=== PATIENT | male | born 2005 | race Two or more races ===

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

== ENCOUNTER 2023-04-23 04:50 | Emergency (ER) | payer MEDICAID ==
[~2023-04-23] VITALS: Ht 177.8 cm; Wt 103.8 kg
[~2023-04-23 04:50] MED LIST: CEPH-510 PO; IBUP-1456 PO
[2023-04-23 05:03] VITALS: BP 114/84
== END 2023-04-23 07:25 | disposition left against medical advice (07) ==
LOC: ER 04:50
DX: R51.9 Headache, unspecified (principal); Z53.21 Procedure and treatment not carried out due to patient leaving prior to being seen by health care provider; Y08.89XA Assault by other specified means, initial encounter; Y93.89 Activity, other specified; Y92.89 Other specified places as the place of occurrence of the external cause; Y99.8 Other external cause status